=== PATIENT | female | born 2000 | race Caucasian/White ===

== ENCOUNTER 2018-06-17 13:55 | Emergency (ER) | payer OTHER ==
[~2018-06-17] VITALS: Ht 165.1 cm; Wt 79.4 kg
[~2018-06-17 13:55] MED LIST: AMOXICILLIN 50500 MG PO; BIRTH CONTROL PILL; CIPRO250 M1 PO; ZOFRAN4 MG PO
[2018-06-17] MEDS ORDERED: SERTRALINE HCL50 MG PO (14:11)
[2018-06-17] MEDS ORDERED: IMITREX 50 MG T50 MG PO (14:12)
[2018-06-17] MEDS ORDERED: RANITIDINE 150150 M1 PO (14:12)
[2018-06-17] MEDS ORDERED: MEDROLDOSEPACK PO (14:32)
[2018-06-17 14:47] VITALS: BP 130/78
== END 2018-06-17 14:47 | disposition home or self-care (01) ==
LOC: M.ERS 13:55
DX: J02.8 Acute pharyngitis due to other specified organisms (principal); B97.89 Other viral agents as the cause of diseases classified elsewhere